=== PATIENT | male | born 1950 | race Caucasian/White ===

== ENCOUNTER 2020-04-27 22:52 | Emergency (ER) | payer MEDICARE, OTHER ==
[2020-04-27] MEDS: Nitroglycerin 0.4 MG Tab.SL SL PRN (23:05)
[2020-04-27] MEDS ORDERED: Sodium Chloride 0.9% 10 ML Syringe FLUSH PRN (23:13)
--- NOTE | 2020-04-27 23:14 | EDM.PDOC ---
ED HPI GENERAL MEDICAL PROBLEM - General Stated Complaint: CHEST PAIN Time Seen by Provider: 04/27/20 23:10 Source of Information: Reports: Patient History Limitations: Reports: No Limitations - History of Present Illness INITIAL COMMENTS - FREE TEXT/NARRATIVE: Patient comes emergency department today with complaints of chest pain. This patient about half hour prior to arrival was awoken from sleep with a sharp shooting stabbing pain in the left anterior chest. This pain gets quite a bit worse with a deep breath movement or cough. He has had no congestion. No shortness of breath fever or chills. No weakness dizziness lightheadedness. No palpitations. No syncope. He has never had pain like this in the past. He denies any COVID symptoms. Does have a history of factor V Leiden coagulopathy for which he is chronically on Coumadin for. He has had no recent surgery sedentary lifestyle or long trips in a car or airplane. He does not smoke for many years. He did have about a pack a day for 12 years history. He has no abdominal pain nausea or vomiting. No hematuria dysuria or urinary frequency. No black or tarry stools. The pain does not really radiate much from the left medial anterior chest region. Mid-Sternal Chest Pain Score (Numeric/FACES): 8 - Related Data Allergies Allergy/AdvReac Type Severity Reaction Status Date / Time No Known Allergies Allergy Verified 09/11/15 10:43 Home Meds: Home Meds Doxazosin Mesylate [Cardura] 2 mg PO DAILY 04/27/20 [History] Esomeprazole [NexIUM] 40 mg PO DAILY 04/27/20 [History] Fluticasone Propionate [Flonase] 2 spray NASBOTH DAILY 04/27/20 [History] Telmisartan/Hydrochlorothiazid [Telmisartan-Hctz 80-25 mg Tab] 1 each PO DAILY 04/27/20 [History] Warfarin Sodium [Jantoven] 3 mg PO ASDIRECTED 04/27/20 [History] atorvaSTATin Calcium [Atorvastatin Calcium] 10 mg PO DAILY 04/27/20 [History] Past Medical History Other Hematologic History: Clotting disorder ED ROS GENERAL - Review of Systems Review Of Systems: Comprehensive ROS is negative, except as noted in HPI. ED EXAM, GENERAL - Physical Exam Exam: See Below Exam Limited By: No Limitations General Appearance: Alert, WD/WN, No Apparent Distress Eye Exam: Bilateral Eye: EOMI Ears: Normal External Exam Nose: Normal Inspection, Normal Mucosa Throat/Mouth: Normal Inspection, Normal Lips, Normal Oropharynx Head: Atraumatic, Normocephalic Neck: Normal Inspection, Supple, Non-Tender Respiratory/Chest: No Respiratory Distress, Lungs Clear, Normal Breath Sounds, No Accessory Muscle Use, Chest Non-Tender (No bruising swelling or signs of trauma. ) Cardiovascular: Normal Peripheral Pulses, Regular Rate, Rhythm Peripheral Pulses: 2+: Radial (L), Radial (R), Posterior Tibial (L), Posterior Tibial (R), Dorsalis Pedis (L), Dorsalis Pedis (R) GI/Abdominal: Normal Bowel Sounds, Soft, Non-Tender, No Distention (Male) Exam: Deferred Rectal (Males) Exam: Deferred Back Exam: Normal Inspection, Full Range of Motion Extremities: Normal Inspection, Normal Range of Motion, Non-Tender, No Pedal Edema, Normal Capillary Refill Neurological: Alert, Oriented, Normal Cognition, No Motor/Sensory Deficits Psychiatric: Normal Affect, Normal Mood Skin Exam: Warm, Dry, Intact, Normal Color, No Rash Lymphatic: No Adenopathy Course - Vital Signs Last Recorded V/S: Last Vital Signs Temp 98.5 F 04/27/20 22:55 Pulse 75 04/28/20 03:41 Resp 16 04/28/20 03:31 BP 133/81 04/28/20 03:41 Pulse Ox 97 04/28/20 03:31 - Orders/Labs/Meds Orders: Active Orders 24 hr Category Date Time Status EKG Documentation Completion [RC] STAT Care 04/27/20 23:13 Active Peripheral IV Insertion Adult [OM.PC] Stat Oth 04/27/20 23:13 Ordered Labs: Laboratory Tests 04/27/20 04/27/20 04/27/20 Range/Units 23:05 23:05 23:05 WBC 5.5 (4.0-10.0) x10^3/uL RBC 4.29 L (4.5-6.0) x10^6/uL Hgb 13.4 L D (14.0-18.0) g/dL Hct 37.8 L (40.0-52.0) % MCV 88.1 (78.0-93.0) fL MCH 31.2 (26.0-32.0) pg MCHC 35.4 (32.0-36.0) g/dL RDW Coeff of Deandra 12.5 (10.0-15.0) % Plt Count 185 (130-400) x10^3/uL Neut % (Auto) 54.3 (50.0-80.0) % Lymph % (Auto) 30.4 (25.0-50.0) % [place] % (Auto) 10.6 (2.0-11.0) % Eos % (Auto) 4.2 H (0.0-4.0) % Baso % (Auto) 0.5 (0.2-1.2) % PT 17.7 H (9.5-12.3) SEC INR 1.7 L (2.0-3.5) APTT 32.7 (25.6-32.8) SEC D-Dimer, Quantitative 0.37 (<=0.58) mg/LFEU Sodium 135 L (136-145) mmol/L Potassium 3.6 (3.5-5.1) mmol/L Chloride 97 L (98-107) mmol/L Carbon Dioxide 29 (21-32) mmol/L Anion Gap 12.6 (10-20) mmol/L BUN 17 (7-18) mg/dL Creatinine 1.4 H (0.70-1.30) mg/dL Est Cr Clr Drug Dosing TNP Estimated GFR (MDRD) 50 Glucose 109 H (74-106) mg/dL Calcium 8.5 (8.5-10.1) mg/dL Corrected Calcium 8.42 L (8.5-10.1) mg/dL Total Bilirubin 0.7 (0.2-1.0) mg/dL AST 47 H (15-37) U/L ALT 68 H (16-63) U/L Alkaline Phosphatase 85 (46-116) U/L Troponin I < 0.017 (<=0.056) ng/mL Total Protein 7.9 (6.4-8.2) g/dL Albumin 4.1 (3.4-5.0) g/dL Globulin 3.8 Albumin/Globulin Ratio 1.08 /11/17 Range/Units 03:09 WBC (4.0-10.0) x10^3/uL RBC (4.5-6.0) x10^6/uL Hgb (14.0-18.0) g/dL Hct (40.0-52.0) % MCV (78.0-93.0) fL MCH (26.0-32.0) pg MCHC (32.0-36.0) g/dL RDW Coeff of Deandra (10.0-15.0) % Plt Count (130-400) x10^3/uL Neut % (Auto) (50.0-80.0) % Lymph % (Auto) (25.0-50.0) % [place] % (Auto) (2.0-11.0) % Eos % (Auto) (0.0-4.0) % Baso % (Auto) (0.2-1.2) % PT (9.5-12.3) SEC INR (2.0-3.5) APTT (25.6-32.8) SEC D-Dimer, Quantitative (<=0.58) mg/LFEU Sodium (136-145) mmol/L Potassium (3.5-5.1) mmol/L Chloride (98-107) mmol/L Carbon Dioxide (21-32) mmol/L Anion Gap (10-20) mmol/L BUN (7-18) mg/dL Creatinine (0.70-1.30) mg/dL Est Cr Clr Drug Dosing Estimated GFR (MDRD) Glucose (74-106) mg/dL Calcium (8.5-10.1) mg/dL Corrected Calcium (8.5-10.1) mg/dL Total Bilirubin (0.2-1.0) mg/dL AST (15-37) U/L ALT (16-63) U/L Alkaline Phosphatase (46-116) U/L Troponin I < 0.017 (<=0.056) ng/mL Total Protein (6.4-8.2) g/dL Albumin (3.4-5.0) g/dL Globulin Albumin/Globulin Ratio Meds: Medications Discontinued Medications Generic Name Dose Route Start Last Admin Trade Name Freq PRN Reason Stop Dose Admin Al Hydroxide/Mg Hydroxide 30 ml 04/28/20 04:40 04/28/20 04:45 Gi Cocktail PO 04/28/20 04:41 30 ml ONETIME ONE Administration Aspirin 324 mg 04/28/20 00:01 04/27/20 23:05 Aspirin PO 04/28/20 00:02 324 mg ONETIME ONE Administration Nitroglycerin 0.4 mg 04/28/20 00:01 04/28/20 03:30 Nitrostat SL 04/29/20 00:01 0.4 mg Q5M PRN Administration Chest Pain Sodium Chloride 10 ml 04/27/20 23:13 Saline Flush FLUSH ASDIRECTED PRN Keep Vein Open - Radiology Interpretation Free Text/Narrative:: Cardiomegaly with mild central vascular congestion. - Re-Assessments/Exams Free Text/Narrative Re-Assessment/Exam: Initially the patient was given 324mg PO Aspirin and 1 nitro prior to my arrival. EKG NO ST elevation or depression and unchange from previous. CP did improve after the nitro and also sitting up really. D-Dimer negative. Troponin negative. Repeated troponin at 4 hours and still negative. His CP did return on its own and was given a nitro by nursing prior to my arrival. We also gave him a GI Cocktail and sat him up and that resolved his CP quickly and more effectively per the patient. I wound him aspect of this is not either heartburn or musculoskeletal. 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 Could be some underlying angina. He really does not want to stay in the hospital or have any further evaluation as he has to take his to [place]. I think this is fine at this time as his repeat troponin is negative. If he has recurrence of his chest pain and like him to try some [id number] Maalox or Mylanta. If this does not resolve to recheck at that time. I also want a see his primary care as soon as possible for consideration of a stress test. He is comfortable with this plan his questions are answered. Departure - Departure Time of Disposition: 04:45 Disposition: Home, Self-Care Clinical Impression: Chest pain made worse by breathing Instructions: Nonspecific Chest Pain, Adult, [id number] Referrals: Yoav Bear MD [Primary Care Provider] - Forms: ED Department Discharge Additional Instructions: Continue with home therapies. Continue with the aspirin daily. See your PCP sunday or sunday for recheck and consider a stress test. Return if new or worsening symptoms. For acute episodes of the heart burn try OTC Maalox or Mylanta Sepsis Event Note (ED) - Focused Exam Vital Signs: Vital Signs Pulse Resp BP BP Pulse Ox 04/28/20 03:41 75 133/81 04/28/20 03:31 8 L 16 168/101 H 97 04/28/20 03:30 168/101 H - My Orders Last 24 Hours: My Active Orders 04/27/20 23:13 EKG Documentation Completion [RC] STAT Peripheral IV Insertion Adult [OM.PC] Stat - Assessment/Plan Last 24 Hours: My Active Orders 04/27/20 23:13 EKG Documentation Completion [RC] STAT Peripheral IV Insertion Adult [OM.PC] Stat
[2020-04-27 23:44] LABS: CHLORIDE,CL 97 mmol/L (98-107); SODIUM,NA 135 mmol/L (136-145)
[2020-04-27 23:48] LABS: ANION GAP 12.6 mmol/L (10-20)
[2020-04-28] MEDS ORDERED: Aspirin 81 MG Tab.Chew PO ONE (00:01)
[2020-04-28 00:04] LABS: PTT,PARTIAL THROMBOPLSTIN TIME 32.7 SEC (25.6-32.8)
[2020-04-28] MEDS: Nitroglycerin 0.4 MG Tab.SL SL PRN (03:30)
[2020-04-28 03:41] VITALS: BP 133/81; PULSE 75
[2020-04-28] MEDS ORDERED: GI Cocktail Oral Solution 30 ML PO ONE (04:40)
--- NOTE | 2020-04-28 07:55 | CR ---
[id number] RAD/RAD Chest PA And Lateral EXAM: FRONTAL AND LATERAL CHEST INDICATION: CHEST PAIN, SHORTNESS OF BREATH. COMPARISON: September 11, 2015. DISCUSSION: Cardiomegaly with borderline central vascular congestion that is similar to the previous exam. The left hemidiaphragm is obscured, but this is similar to the prior study and may relate to chronic left base pathology or technical factors. No definite acute infiltrates. No effusions. IMPRESSION: 1. Cardiomegaly with borderline central vascular congestion. Ralph Garcia MD 04/28/20 0754 Thank you for allowing us to participate in the care of your patient.
== END 2020-04-28 05:15 | disposition home or self-care (01) ==
LOC: VM.ED 22:52
DX: R07.1 Chest pain on breathing (principal); Z79.899 Other long term (current) drug therapy
CPT/HCPCS: 36415; 71046; 80053; 84484; 85025; 85379; 85610; 85730; 93005; 99284-GF; 99285-25; A9270-GY

== ENCOUNTER 2020-10-19 20:51 | Emergency (ER) | payer MEDICARE, OTHER ==
[2020-10-19] MEDS ORDERED: Lactated Ringers 1,000 ML IV ONE (21:30)
[2020-10-19] MEDS ORDERED: Ondansetron 4 MG/2 ML SDV ONE (21:37)
[2020-10-19] MEDS ORDERED: HYDROmorphone 1 MG/ML Syringe ONE (21:37)
[2020-10-19] MEDS ORDERED: Take Home: Acetaminophen/HYDROcodone 325-5 MG, 5 Tab Pack ONE (23:14)
[2020-10-20 06:57] LABS: CHLORIDE,CL 99 mmol/L (98-107); SODIUM,NA 135 mmol/L (136-145)
[2020-10-20 06:58] LABS: ANION GAP 15.5 mmol/L (10-20)
--- NOTE | 2020-10-20 09:36 | EDM.PDOC ---
ED HPI GENERAL MEDICAL PROBLEM - General Stated Complaint: RUQ abdominal pain Time Seen by Provider: 10/19/20 20:57 Source of Information: Reports: Patient History Limitations: Reports: No Limitations - History of Present Illness INITIAL COMMENTS - FREE TEXT/NARRATIVE: Patient comes emergency department today with complaints of right upper quadrant abdominal pain. This patient for about the last week and a half or so has had some intermittent spasming type right upper quadrant abdominal pain. He was seen in the primary care setting for a yearly physical and identified this pain as well as some minimal elevation of his liver enzymes. He is actually scheduled to have an ultrasound in [place] tomorrow due to his right upper quadrant pain. Tonight he has severe pain that is very crampy in nature in the right upper quadrant. To the point where it is difficult for him to take a deep breath because it makes his spasms worse. The pain goes into his back into his right shoulder. He has not had any nausea or vomiting. No bloating distention. No diarrhea. No chest pain or shortness of breath or difficulty breathing. No cough or congestion. No fever or chills. No hematuria dysuria or urinary frequency. No flank pain. No syncope weakness dizziness lightheadedness. No palpitations. No COvid exposure no COvid symptoms. His pain was quite severe and crampy prior to arrival but is slowly gotten better as he is been here prior to my evaluation. He had some rotisserie chicken for dinner. - Related Data Allergies Allergy/AdvReac Type Severity Reaction Status Date / Time No Known Allergies Allergy Verified 10/20/20 02:39 Home Meds: Home Meds Doxazosin Mesylate [Cardura] 2 mg PO DAILY 04/27/20 [History] Esomeprazole [NexIUM] 40 mg PO DAILY 04/27/20 [History] Fluticasone Propionate [Flonase] 2 spray NASBOTH DAILY 04/27/20 [History] Telmisartan/Hydrochlorothiazid [Telmisartan-Hctz 80-25 mg Tab] 1 each PO DAILY 04/27/20 [History] Warfarin Sodium [Jantoven] 3 mg PO ASDIRECTED 04/27/20 [History] atorvaSTATin Calcium [Atorvastatin Calcium] 10 mg PO DAILY 04/27/20 [History] Past Medical History Cardiovascular History: Reports: Blood Clots/VTE/DVT, High Cholesterol, Hypertension Gastrointestinal History: Reports: GERD Neurological History: Reports: CVA Other Hematologic History: Clotting disorder ED ROS GENERAL - Review of Systems Review Of Systems: Comprehensive ROS is negative, except as noted in HPI. ED EXAM, GI/ABD - Physical Exam Exam: See Below Exam Limited By: No Limitations General Appearance: Alert, WD/WN, Anxious Eyes: Bilateral: EOMI Ears: Normal External Exam Nose: Normal Inspection Throat/Mouth: Normal Inspection Head: Atraumatic, Normocephalic Neck: Normal Inspection, Supple, Non-Tender Respiratory/Chest: No Respiratory Distress, Lungs Clear, Normal Breath Sounds, No Accessory Muscle Use, Chest Non-Tender Cardiovascular: Normal Peripheral Pulses, Regular Rate, Rhythm GI/Abdominal Exam: Normal Bowel Sounds, Soft, No Organomegaly, No Distention, No Abnormal Bruit, No Mass, Pelvis Stable, Tender (He has some tenderness in the right upper quadrant with palpation. Question a positive Melchor sign). No: Guarding, Rigid, Rebound (Male) Exam: Deferred Rectal (Males) Exam: Deferred Back Exam: Normal Inspection, Full Range of Motion Extremities: Normal Inspection, Normal Range of Motion, Non-Tender, Normal Capillary Refill Neurological: Alert, Oriented, Normal Cognition, No Motor/Sensory Deficits Psychiatric: Normal Affect, Normal Mood Skin Exam: Warm, Dry, Intact, Normal Color, No Rash Lymphatic: No Adenopathy Course - Orders/Labs/Meds Labs: Laboratory Tests 10/19/20 10/19/20 Range/Units 21:25 21:25 WBC 7.3 (4.0-10.0) x10^3/uL RBC 4.36 L (4.5-6.0) x10^6/uL Hgb 12.7 L (14.0-18.0) g/dL Hct 37.8 L (40.0-52.0) % MCV 86.7 (78.0-93.0) fL MCH 29.1 (26.0-32.0) pg MCHC 33.6 (32.0-36.0) g/dL RDW Coeff of Deandra 12.6 (10.0-15.0) % Plt Count 225 (130-400) x10^3/uL Neut % (Auto) 74.8 (50.0-80.0) % Lymph % (Auto) 12.7 L (25.0-50.0) % [place] % (Auto) 9.1 (2.0-11.0) % Eos % (Auto) 3.0 (0.0-4.0) % Baso % (Auto) 0.4 (0.2-1.2) % Sodium 135 L (136-145) mmol/L Potassium 3.5 (3.5-5.1) mmol/L Chloride 99 (98-107) mmol/L Carbon Dioxide 24 (21-32) mmol/L Anion Gap 15.5 (10-20) mmol/L BUN 24 H (7-18) mg/dL Creatinine 1.4 H (0.70-1.30) mg/dL Est Cr Clr Drug Dosing TNP Estimated GFR (MDRD) 50 Glucose 117 H (74-106) mg/dL Calcium 9.2 (8.5-10.1) mg/dL Corrected Calcium 9.68 (8.5-10.1) mg/dL Total Bilirubin 0.6 (0.2-1.0) mg/dL AST 54 H (15-37) U/L ALT 90 H (16-63) U/L Alkaline Phosphatase 197 H (46-116) U/L C-Reactive Protein 3.0 H (<=0.9) mg/dL Total Protein 8.1 (6.4-8.2) g/dL Albumin 3.4 (3.4-5.0) g/dL Globulin 4.7 Albumin/Globulin Ratio 0.72 Lipase 89 (73-393) U/L Meds: Medications Discontinued Medications Generic Name Dose Route Start Last Admin Trade Name Brando PRN Reason Stop Dose Admin Hydrocodone Bitart/Acetaminophen Confirm 10/19/20 23:14 Take Home: Acetam/Hydrocodon 325-5 Mg, 5 Pack Administered 10/19/20 23:15 Dose 1 packet .ROUTE .STK-MED ONE Hydromorphone HCl Confirm 10/19/20 21:37 Dilaudid Administered 10/19/20 21:38 Dose 1 mg .ROUTE .STK-MED ONE Ondansetron HCl Confirm 10/19/20 21:37 Zofran Administered 10/19/20 21:38 Dose 4 mg .ROUTE .STK-MED ONE - Re-Assessments/Exams Free Text/Narrative Re-Assessment/Exam: An IV was established labs are drawn. He has a normal white blood cell count of 7.3 with a hemoglobin of 12.7. Platelet of 225. LR 500 mill bolus. 1 mg of Dilaudid with complete resolution of his pain. Panel shows a mild elevation of his creatinine of 1.4 and a BUN of 24. AST 54 ALT 90 T bili at 0.6 alkaline phosphatase 197 and a C-reactive protein of 3.0. Lipase 89. He was monitored over the next couple of hours and had no recurrence of his pain. Multiple reexaminations of the abdomen shows a soft nontender nondistended abdomen. POCUS completed and reviewed extemporaneously by myself of the right upper quadrant. Shows a nondistended gallbladder. Gallbladder miranda are approximately 0.6. There is no pericystic fluid. There is a small amount of sludge or fine stones in the gallbladder neck. Right kidney is normal. Unable to identify the common bile duct. Is rested comfortably following the milligram of Dilaudid. This is really the sequelae of Biliary colic. He has a mild elevation of his liver enzymes with a normal T [place]. We will discharge him home with some pain management and a follow-up that is already been scheduled with his ultrasound for tomorrow for definitive work-up of his biliary colic. Lisa at length the diet for gallbladder at home. Return if anything new or worse. He is comfortable with this plan his questions are answered. Departure - Departure Time of Disposition: 23:15 Disposition: Home, Self-Care 01 Clinical Impression: Biliary colic - Discharge Information Referrals: PCP,Unobtain [Primary Care Provider] - Additional Instructions: Tylenol and/or ibuprofen as needed for pain. Home rest tonight gallbladder diet. Follow-up with your ultrasound for tomorrow. If pain not controlled with above [place] 1 tablet p.o. q. 46 as needed pain. Starter pack sent home with the patient. Prescription sent to the pharmacy. The emergency department new or worsening symptoms. Follow-up with primary care provider the next 4 to 6 days if not improving sooner if worse. Follow-up with ultrasound tomorrow as planned.
== END 2020-10-19 23:15 | disposition home or self-care (01) ==
LOC: VM.ED 20:51
DX: K80.50 Calculus of bile duct without cholangitis or cholecystitis without obstruction (principal); R74.8 Abnormal levels of other serum enzymes; I10 Essential (primary) hypertension; E78.00 Pure hypercholesterolemia, unspecified; K21.9 Gastro-esophageal reflux disease without esophagitis; Z79.899 Other long term (current) drug therapy
CPT/HCPCS: 80053; 83690; 85025; 86140; 99284; A9270-GY; J1170; J2405; J7120

== ENCOUNTER 2020-10-20 09:17 | Emergency (ER) | payer MEDICARE, OTHER ==
[2020-10-20] MEDS ORDERED: HYDROmorphone 1 MG/ML Syringe IVPUSH ONE (09:28)
[2020-10-20] MEDS ORDERED: Sodium Chloride 0.9% 10 ML Syringe FLUSH PRN (09:28)
[2020-10-20] MEDS ORDERED: Lactated Ringers 1,000 ML IV SCH (09:30)
--- NOTE | 2020-10-20 10:10 | EDM.PDOC ---
ED HPI GENERAL MEDICAL PROBLEM - General Stated Complaint: BACK PAIN Time Seen by Provider: 10/20/20 09:20 Source of Information: Reports: Patient History Limitations: Reports: No Limitations - History of Present Illness INITIAL COMMENTS - FREE TEXT/NARRATIVE: Patient comes emergency department today with continued complaints of right upper quadrant pain. This patient was seen by myself in the emergency department last night with right upper quadrant colicky type pain. Please read my ER note from last night for further information. As a short he has had complete pain in the right upper quadrant for about the past 2 weeks. Came in last night had severe pain into the right upper quadrant. He received Dilaudid with resolution of his pain. He had mild elevation of his liver enzymes to include AST ALT and alkaline phosphatase although he had a normal T bili. And a normal white blood cell count. After he left home last night after the 1 mg of Dilaudid he felt very well. He had no pain. No nausea no vomiting. This morning he woke up and he was asymptomatic. Shortly after eating breakfast he developed severe cramping colicky type pain in the right upper quadrant that went into his back into his right shoulder. Similar to last night. Although now he is sweating he is nauseous he has been vomiting. He was supposed to be in [place] today for an ultrasound of the right upper quadrant although he was unable to go due to his symptoms as well as the weather. He denies any chest pain shortness of breath or difficulty breathing. No cough or congestion. No weakness dizziness lightheadedness. No palpitations syncope. No loss of taste or smell. No diarrhea. He does complain of some abdominal distention and bloating which is different than last night. No hematuria dysuria or urinary frequency. No flank pain. No Covid exposure no Covid symptoms. RUQ Pain Pain Score (Numeric/FACES): 6 - Related Data Allergies Allergy/AdvReac Type Severity Reaction Status Date / Time No Known Allergies Allergy Verified 10/20/20 10:15 Home Meds: Home Meds Doxazosin Mesylate [Cardura] 2 mg PO DAILY 04/27/20 [History] Esomeprazole [NexIUM] 40 mg PO DAILY 04/27/20 [History] Fluticasone Propionate [Flonase] 2 spray NASBOTH DAILY 04/27/20 [History] Telmisartan/Hydrochlorothiazid [Telmisartan-Hctz 80-25 mg Tab] 1 each PO DAILY 04/27/20 [History] Warfarin Sodium [Jantoven] 3 mg PO ASDIRECTED 04/27/20 [History] atorvaSTATin Calcium [Atorvastatin Calcium] 10 mg PO DAILY 04/27/20 [History] Past Medical History Cardiovascular History: Reports: Blood Clots/VTE/DVT, High Cholesterol, Hypertension Gastrointestinal History: Reports: GERD Neurological History: Reports: CVA Other Hematologic History: Clotting disorder ED ROS GENERAL - Review of Systems Review Of Systems: Comprehensive ROS is negative, except as noted in HPI. ED EXAM, GI/ABD - Physical Exam Exam: See Below Text/Narrative:: He does appear quite different than last night. He is quite diaphoretic when I enter the room. Exam Limited By: No Limitations General Appearance: Alert, WD/WN Eyes: Bilateral: EOMI Ears: Normal External Exam Nose: Normal Inspection Throat/Mouth: Normal Inspection, Normal Lips, Normal Voice Head: Atraumatic, Normocephalic Neck: Normal Inspection, Supple, Non-Tender Respiratory/Chest: No Respiratory Distress, Lungs Clear, Normal Breath Sounds, No Accessory Muscle Use, Chest Non-Tender Cardiovascular: Normal Peripheral Pulses, Regular Rate, Rhythm GI/Abdominal Exam: Normal Bowel Sounds, Distended, Guarding (RUQ), Tender (Right Upper quadrant.), Other (Semi-firm distended abd. ). No: Rebound (Male) Exam: Deferred Rectal (Males) Exam: Deferred Back Exam: Normal Inspection, Full Range of Motion Extremities: Normal Inspection, Normal Range of Motion, Non-Tender, No Pedal Edema, Normal Capillary Refill Neurological: Alert, Oriented, Normal Cognition, No Motor/Sensory Deficits Psychiatric: Normal Affect Skin Exam: Intact, Cool, Diaphoretic, Pallor Lymphatic: No Adenopathy #1 Interpretation EKG Date: 10/20/20 Time: 09:27 Rhythm: NSR Rate (Beats/Min): 76 Ramer: Normal P-Wave: Present QRS: RBBB ST-T: Normal QT: Normal Comparison: NA - No Prior EKG Course - Vital Signs Last Recorded V/S: Last Vital Signs Temp 97.2 F 10/20/20 12:12 Pulse 78 10/20/20 12:12 Resp 16 10/20/20 12:12 BP 143/83 H 10/20/20 12:12 Pulse Ox 97 10/20/20 12:12 - Orders/Labs/Meds Labs: Laboratory Tests 10/20/20 10/20/20 10/20/20 Range/Units 09:45 09:45 09:45 WBC 5.4 (4.0-10.0) x10^3/uL RBC 4.40 L (4.5-6.0) x10^6/uL Hgb 12.7 L (14.0-18.0) g/dL Hct 38.6 L (40.0-52.0) % MCV 87.7 (78.0-93.0) fL MCH 28.9 (26.0-32.0) pg MCHC 32.9 (32.0-36.0) g/dL RDW Coeff of Deandra 12.8 (10.0-15.0) % Plt Count 243 (130-400) x10^3/uL Neut % (Auto) 67.6 (50.0-80.0) % Lymph % (Auto) 17.2 L (25.0-50.0) % Daniels % (Auto) 11.5 H (2.0-11.0) % Eos % (Auto) 3.1 (0.0-4.0) % Baso % (Auto) 0.6 (0.2-1.2) % PT (9.5-12.3) SEC INR (2.0-3.5) APTT (25.6-32.8) SEC Sodium 136 (136-145) mmol/L Potassium 3.5 (3.5-5.1) mmol/L Chloride 100 (98-107) mmol/L Carbon Dioxide 25 (21-32) mmol/L Anion Gap 14.5 (10-20) mmol/L BUN 22 H (7-18) mg/dL Creatinine 1.3 (0.70-1.30) mg/dL Est Cr Clr Drug Dosing TNP Estimated GFR (MDRD) 55 Glucose 132 H (74-106) mg/dL Lactic Acid 1.5 (0.4-2.0) mmol/L Calcium 9.0 (8.5-10.1) mg/dL Corrected Calcium 9.40 (8.5-10.1) mg/dL Total Bilirubin 0.8 (0.2-1.0) mg/dL AST 59 H (15-37) U/L ALT 101 H (16-63) U/L Alkaline Phosphatase 208 H (46-116) U/L Troponin I < 0.017 (<=0.056) ng/mL C-Reactive Protein 3.5 H (<=0.9) mg/dL Total Protein 8.2 (6.4-8.2) g/dL Albumin 3.5 (3.4-5.0) g/dL Globulin 4.7 Albumin/Globulin Ratio 0.74 Lipase 77 (73-393) U/L Urine Color (YELLOW) Urine Appearance (CLEAR) Urine pH (5.0-8.0) Ur Specific [place] Urine Protein (NEGATIVE) mg/dL Urine Glucose (UA) (NEGATIVE) mg/dL Urine Ketones (NEGATIVE) mg/dL Urine Occult Blood (NEGATIVE) Urine Nitrite (NEGATIVE) Urine Bilirubin (NEGATIVE) Urine Urobilinogen (0.2) EU/dL Ur Leukocyte Esterase (NEGATIVE) Urine RBC (NOT SEEN) /HPF Urine WBC (NOT SEEN) /HPF Ur Squamous Epith Cells (NEGATIVE) /HPF Urine Bacteria (NEGATIVE) /HPF Urine Mucus (NEGATIVE) /LPF SARS CoV-2 RNA Rapid HEBER (NEGATIVE) 10/20/20 10/20/20 10/20/20 Range/Units 09:45 12:12 12:42 WBC (4.0-10.0) x10^3/uL RBC (4.5-6.0) x10^6/uL Hgb (14.0-18.0) g/dL Hct (40.0-52.0) % MCV (78.0-93.0) fL MCH (26.0-32.0) pg MCHC (32.0-36.0) g/dL RDW Coeff of Deandra (10.0-15.0) % Plt Count (130-400) x10^3/uL Neut % (Auto) (50.0-80.0) % Lymph % (Auto) (25.0-50.0) % Daniels % (Auto) (2.0-11.0) % Eos % (Auto) (0.0-4.0) % Baso % (Auto) (0.2-1.2) % PT 23.9 H D (9.5-12.3) SEC INR 2.3 (2.0-3.5) APTT 36.3 H (25.6-32.8) SEC Sodium (136-145) mmol/L Potassium (3.5-5.1) mmol/L Chloride (98-107) mmol/L Carbon Dioxide (21-32) mmol/L Anion Gap (10-20) mmol/L BUN (7-18) mg/dL Creatinine (0.70-1.30) mg/dL Est Cr Clr Drug Dosing Estimated GFR (MDRD) Glucose (74-106) mg/dL Lactic Acid (0.4-2.0) mmol/L Calcium (8.5-10.1) mg/dL Corrected Calcium (8.5-10.1) mg/dL Total Bilirubin (0.2-1.0) mg/dL AST (15-37) U/L ALT (16-63) U/L Alkaline Phosphatase (46-116) U/L Troponin I (<=0.056) ng/mL C-Reactive Protein (<=0.9) mg/dL Total Protein (6.4-8.2) g/dL Albumin (3.4-5.0) g/dL Globulin Albumin/Globulin Ratio Lipase (73-393) U/L Urine Color Yellow (YELLOW) Urine Appearance Clear (CLEAR) Urine pH 5.5 (5.0-8.0) Ur Specific [place] 1.015 Urine Protein Trace H (NEGATIVE) mg/dL Urine Glucose (UA) Negative (NEGATIVE) mg/dL Urine Ketones Negative (NEGATIVE) mg/dL Urine Occult Blood Trace-intact H (NEGATIVE) Urine Nitrite Negative (NEGATIVE) Urine Bilirubin Negative (NEGATIVE) Urine Urobilinogen 0.2 (0.2) EU/dL Ur Leukocyte Esterase Negative (NEGATIVE) Urine RBC 0-5 (NOT SEEN) /HPF Urine WBC 0-5 (NOT SEEN) /HPF Ur Squamous Epith Cells Rare (NEGATIVE) /HPF Urine Bacteria Rare (NEGATIVE) /HPF Urine Mucus Rare H (NEGATIVE) /LPF SARS CoV-2 RNA Rapid HEBER Negative (NEGATIVE) Meds: Medications Discontinued Medications Generic Name Dose Route Start Last Admin Trade Name Freq PRN Reason Stop Dose Admin Diphenhydramine HCl 12.5 mg 10/20/20 10:20 10/20/20 11:22 Benadryl IVPUSH 10/20/20 10:21 12.5 mg ONETIME ONE Administration Hydromorphone HCl 1 mg 10/20/20 09:28 10/20/20 09:57 Dilaudid IVPUSH 10/20/20 09:29 1 mg ONETIME ONE Administration Hydromorphone HCl 0.5 mg 10/20/20 12:04 10/20/20 12:07 Dilaudid IV 10/20/20 12:05 0.5 mg ONETIME ONE Administration Lactated Ringer's 1,000 mls @ 125 mls/hr 10/20/20 09:30 10/20/20 09:58 Ringers, Lactated IV 125 mls/hr ASDIRECTED ISAK Administration Iopamidol 100 ml 10/20/20 10:16 10/20/20 10:17 Isovue-300 (61%) IVPUSH 10/20/20 10:17 100 ml ONETIME ONE Administration Ondansetron HCl 4 mg 10/20/20 10:20 10/20/20 11:20 Zofran IV 10/20/20 10:21 4 mg ONETIME ONE Administration Sodium Chloride 10 ml 10/20/20 09:28 Saline Flush FLUSH ASDIRECTED PRN Keep Vein Open - Re-Assessments/Exams Free Text/Narrative Re-Assessment/Exam: He was established labs were drawn. To include blood cultures. EKG shows right bundle dylan block without any ST elevation or depression when reviewed extemporaneously by myself. Dilaudid 1 mg IV push. LR 125 an hour. Labs are very similar to last night. He still has a normal white blood cell count. His hemoglobin is stable. His liver enzymes to include AST ALT and alkaline phosphatase are all minimally elevated just like last night. He still has a normal total bilirubin. His lipase is negative. Troponin is negative at less than 0.017. CT abdomen pelvis per radiology shows metastatic disease involving the liver versus hepatoma. The gallbladder is not distended. No pancreatic mass. No bowel distention. Pelvis shows no mass or adenopathy. He had recurrence of his pain following the Dilaudid. He continues to be diap horetic. He is quite nauseous and has vomited multiple times. He has been given Zofran and Benadryl in the emergency department but still complains of nausea and vomiting and recurrent right upper quadrant pain. He is complaining of the chills and he continues to be diaphoretic. I am really unsure of what is causing all of his symptomology. I still have concerns for gallbladder disease although we are unable to complete an ultrasound or HIDA scan today. I did review the findings of the concerns for metastatic versus hepatoma disease to his liver. Although I think that this may be an incidental finding and not what is causing all of her symptoms today although I am unable to further evaluate it and he continues to have pain nausea and vomiting and diaphoresis. COVID negative. I called and spoke with Dr. Cedric Meyer at [facility]. HPI ER COURSE findings and concerns were relayed to him verbally over the phone. His questions were answered and he accepted the patient in transfer at this time with no new orders in place. Departure - Departure Time of Disposition: 13:02 Disposition: DC/Tfer to [facility] 02 Clinical Impression: Biliary colic, Intractable nausea and vomiting, Liver mass, left lobe - Discharge Information Referrals: Yoav Bear MD [Primary Care Provider] - Forms: Interfacility Transfer MARGARETH
[2020-10-20 10:13] LABS: ANION GAP 14.5 mmol/L (10-20); CHLORIDE,CL 100 mmol/L (98-107); SODIUM,NA 136 mmol/L (136-145)
[2020-10-20] MEDS ORDERED: Iopamidol 612 MG/ML 100 ML Bottle IVPUSH ONE (10:16)
[2020-10-20] MEDS ORDERED: Ondansetron 4 MG/2 ML SDV IV ONE (10:20)
[2020-10-20] MEDS ORDERED: diphenhydrAMINE 50 MG/ML SDV IVPUSH ONE (10:20)
--- NOTE | 2020-10-20 10:58 | CT ---
[id number] CT/CT Abdomen Pelvis W IV EXAM: CT Abdomen Pelvis W IV CLINICAL DATA: RIGHT UPPER QUADRANT DISTENTION COMPARISON: NO PREVIOUS SIMILAR EXAM IS AVAILABLE. FINDINGS: The liver is enlarged The liver appears to be associated with metastatic disease versus a hepatoma It is primarily the left lobe of the liver that is involved The gallbladder is not distended The portal venous system is patent. There is no aneurysm or adenopathy There is no pancreatic mass The adrenals and kidneys are unremarkable. The spleen is unremarkable There is no bowel distention The pelvis shows no mass or adenopathy There is bibasilar discoid atelectasis There is a moderate hiatal hernia IMPRESSION: METASTATIC DISEASE INVOLVING LIVER VERSUS HEPATOMA Kamaljit Harris MD 10/20/20 [id number] Thank you for allowing us to participate in the care of your patient.
[2020-10-20] MEDS ORDERED: HYDROmorphone 0.5 MG/0.5 ML Syringe IV ONE (12:04)
[2020-10-20 13:17] LABS: PTT,PARTIAL THROMBOPLSTIN TIME 36.3 SEC (25.6-32.8)
[2020-10-20 16:26] VITALS: BP 143/83; PULSE 78
== END 2020-10-20 13:45 | disposition short-term general hospital (02) ==
LOC: SUPCPDRO 09:17 → VM.ED 09:17
DX: K80.50 Calculus of bile duct without cholangitis or cholecystitis without obstruction (principal); R16.0 Hepatomegaly, not elsewhere classified; R11.2 Nausea with vomiting, unspecified; E78.00 Pure hypercholesterolemia, unspecified; I10 Essential (primary) hypertension; K21.9 Gastro-esophageal reflux disease without esophagitis; Z86.73 Personal history of transient ischemic attack (TIA), and cerebral infarction without residual deficits; Z20.828 Contact with and (suspected) exposure to other viral communicable diseases; Z79.899 Other long term (current) drug therapy
CPT/HCPCS: 36415; 74177; 80053; 81001; 83605; 83690; 84484; 85025; 85610; 85730; 86140; 87040; 93005; 93010; 96374; 96375; 96376; 99284; 99285-25; J1170; J1200; J2405; J7120; Q9967; U0002

== ENCOUNTER 2020-12-18 10:49 | Emergency (ER) | payer MEDICARE, OTHER ==
[2020-12-18] MEDS ORDERED: Sodium Chloride 0.9% 10 ML Syringe FLUSH PRN (11:06)
[2020-12-18] MEDS ORDERED: Sodium Chloride 0.9% 1,000 ML IV SCH (11:15)
--- NOTE | 2020-12-18 11:38 | EDM.PDOC ---
ED HPI GENERAL MEDICAL PROBLEM - General Chief Complaint: General Stated Complaint: Weakness Time Seen by Provider: 12/18/20 10:50 Source of Information: Reports: Patient History Limitations: Reports: No Limitations - History of Present Illness INITIAL COMMENTS - FREE TEXT/NARRATIVE: Pt. presents to ER today complaining of fatigue. Pt. was recently diagnosed with liver CA and is scheduled to start radiation at [facility] soon. He states that his appetite has been poor, and he has not been wanting to eat. He feels is drinking enough, but is concerned because his urine seems concentrated. Pt. denies any fever or chills. No chest pain or shortness of breath. No palpitations. No nausea, vomiting or diarrhea. He denies any sore throat, rhinorrhea, congestion, or sore throat. Denies any ill contacts. He is not experiencing any dysuria, frequency or urgency. Pt. states that he was given IV fluids in [facility] twice when he was down in [place] for cancer treatment workup/testing. Onset: Today Onset Date: 12/18/20 Location: Reports: Generalized Associated Symptoms: Reports: Loss of Appetite, Malaise, Weakness. Denies: Confusion, Chest Pain, Cough, Diaphoresis, Fever/Chills, Headaches, Nausea/Vomiting, Rash, Seizure, Shortness of Breath, Syncope - Related Data Allergies Allergy/AdvReac Type Severity Reaction Status Date / Time No Known Allergies Allergy Verified 10/20/20 10:15 Home Meds: Home Meds Doxazosin Mesylate [Cardura] 2 mg PO DAILY 04/27/20 [History] Fluticasone Propionate [Flonase] 2 spray NASBOTH DAILY 04/27/20 [History] Telmisartan/Hydrochlorothiazid [Telmisartan-Hctz 80-25 mg Tab] 1 each PO DAILY 04/27/20 [History] Warfarin Sodium [Jantoven] 3 mg PO ASDIRECTED 04/27/20 [History] atorvaSTATin Calcium [Atorvastatin Calcium] 10 mg PO DAILY 04/27/20 [History] Acetaminophen [Pain Relief] 650 mg PO Q4H PRN 12/18/20 [History] Aspirin [Aspirin EC] 81 mg PO DAILY 12/18/20 [History] Cetirizine [ZyrTEC] 5 mg PO DAILY 12/18/20 [History] Clopidogrel [Plavix] 75 mg PO DAILY 12/18/20 [History] EPINEPHrine [Auvi-Q] 0.3 mg IM DAILY PRN 12/18/20 [History] Enoxaparin [Lovenox] 100 mg SUBCUT Q12H 12/18/20 [History] Famotidine [Pepcid] 20 mg PO DAILY 12/18/20 [History] Loratadine [Claritin] 10 mg PO DAILY 12/18/20 [History] Ondansetron [Zofran ODT] 4 mg PO Q6H PRN 12/18/20 [History] Tadalafil [Cialis] 20 mg PO DAILY PRN 12/18/20 [History] atorvaSTATin Calcium [Lipitor] 20 mg PO DAILY 12/18/20 [History] oxyCODONE 10 mg PO Q6H PRN 12/18/20 [History] predniSONE [Prednisone] 40 mg PO DAILY PRN 12/18/20 [History] Past Medical History Cardiovascular History: Reports: Blood Clots/VTE/DVT, High Cholesterol, Hypertension Gastrointestinal History: Reports: GERD Neurological History: Reports: CVA Other Hematologic History: Clotting disorder ED ROS GENERAL - Review of Systems Review Of Systems: See Below Constitutional: Reports: Malaise, Fatigue. Denies: Fever, Chills, Diaphoresis HEENT: Reports: No Symptoms Respiratory: Reports: No Symptoms Cardiovascular: Reports: Lightheadedness Endocrine: Reports: No Symptoms GI/Abdominal: Reports: No Symptoms : Reports: No Symptoms Musculoskeletal: Reports: No Symptoms Skin: Reports: No Symptoms Neurological: Reports: No Symptoms Psychiatric: Reports: No Symptoms Hematologic/Lymphatic: Reports: No Symptoms Immunologic: Reports: No Symptoms ED EXAM, GENERAL - Physical Exam Exam: See Below Exam Limited By: No Limitations General Appearance: Alert, WD/WN, No Apparent Distress Throat/Mouth: Normal Inspection, Normal Gums, Normal Oropharynx, Normal Voice, No Airway Compromise Head: Atraumatic, Normocephalic Neck: Normal Inspection, Supple, Non-Tender, Full Range of Motion Respiratory/Chest: No Respiratory Distress, Lungs Clear, Normal Breath Sounds, No Accessory Muscle Use, Chest Non-Tender Cardiovascular: Normal Peripheral Pulses, Regular Rate, Rhythm, No JVD, No Murmur GI/Abdominal: Soft, Non-Tender, No Distention, No Mass (Male) Exam: Deferred Rectal (Males) Exam: Deferred Extremities: Normal Inspection, Normal Range of Motion, Non-Tender, No Pedal Edema, Normal Capillary Refill Neurological: Alert, Oriented, CN II-XII Intact, Normal Cognition, Normal Gait, Normal Reflexes, No Motor/Sensory Deficits Psychiatric: Normal Affect, Normal Mood Skin Exam: Warm, Dry, Intact, Normal Color, No Rash Course - Vital Signs Last Recorded V/S: Last Vital Signs Temp 35.7 C L 12/18/20 11:00 Pulse 89 12/18/20 11:00 Resp 16 12/18/20 11:00 BP 133/79 12/18/20 11:00 Pulse Ox 97 12/18/20 11:00 - Orders/Labs/Meds Orders: Active Orders 24 hr Category Date Time Status Sodium Chloride 0.9% [Normal Saline] 1,000 ml Med 12/18/20 11:15 Active IV ASDIRECTED Sodium Chloride 0.9% [Saline Flush] Med 12/18/20 11:06 Active 10 ml FLUSH ASDIRECTED PRN Peripheral IV Insertion Adult [OM.PC] Routine Oth 12/18/20 11:07 Ordered Medication Orders Sodium Chloride (Normal Saline) 1,000 mls @ 1,000 mls/hr IV ASDIRECTED ISAK Last Admin: 12/18/20 11:20 Dose: 1,000 mls/hr Documented by: DEVANTE Sodium Chloride (Saline Flush) 10 ml FLUSH ASDIRECTED PRN PRN Reason: Keep Vein Open Labs: Laboratory Tests 12/18/20 12/18/20 12/18/20 Range/Units 11:10 11:20 11:20 WBC 8.4 (4.0-10.0) x10^3/uL RBC 4.45 L (4.5-6.0) x10^6/uL Hgb 12.2 L (14.0-18.0) g/dL Hct 37.3 L (40.0-52.0) % MCV 83.8 D (78.0-93.0) fL MCH 27.4 (26.0-32.0) pg MCHC 32.7 (32.0-36.0) g/dL RDW Coeff of Deandra 14.6 (10.0-15.0) % Plt Count 365 D (130-400) x10^3/uL Neut % (Auto) 76.0 (50.0-80.0) % Lymph % (Auto) 11.4 L (25.0-50.0) % [place] % (Auto) 9.4 (2.0-11.0) % Eos % (Auto) 3.0 (0.0-4.0) % Baso % (Auto) 0.2 (0.2-1.2) % PT (9.9-12.5) SEC INR (2.0-3.5) Sodium 134 L (136-145) mmol/L Potassium 3.8 (3.5-5.1) mmol/L Chloride 96 L (98-107) mmol/L Carbon Dioxide 28 (21-32) mmol/L Anion Gap 13.8 (5-15) mmol/L BUN 23 H (7-18) mg/dL Creatinine 1.4 H (0.70-1.30) mg/dL Est Cr Clr Drug Dosing TNP Estimated GFR (MDRD) 50 Glucose 99 (74-106) mg/dL Calcium 9.1 (8.5-10.1) mg/dL Corrected Calcium 9.90 (8.5-10.1) mg/dL Total Bilirubin 0.9 (0.2-1.0) mg/dL AST 71 H (15-37) U/L ALT 82 H (16-63) U/L Alkaline Phosphatase 461 H (46-116) U/L Total Protein 8.8 H (6.4-8.2) g/dL Albumin 3.0 L (3.4-5.0) g/dL Globulin 5.8 Albumin/Globulin Ratio 0.52 Urine Color Dark yellow H (YELLOW) Urine Appearance Clear (CLEAR) Urine pH 6.5 (5.0-8.0) Ur Specific [place] 1.020 Urine Protein 100 H (NEGATIVE) mg/dL Urine Glucose (UA) Negative (NEGATIVE) mg/dL Urine Ketones Negative (NEGATIVE) mg/dL Urine Occult Blood Trace-intact H (NEGATIVE) Urine Nitrite Negative (NEGATIVE) Urine Bilirubin Negative (NEGATIVE) Urine Urobilinogen 0.2 (0.2) EU/dL Ur Leukocyte Esterase Negative (NEGATIVE) Urine RBC 0-5 (NOT SEEN) /HPF Urine WBC 0-5 (NOT SEEN) /HPF Ur Squamous Epith Cells Occasional H (NEGATIVE) /HPF Urine Bacteria Few H (NEGATIVE) /HPF Urine Mucus Few H (NEGATIVE) /LPF 12/18/20 Range/Units 11:20 WBC (4.0-10.0) x10^3/uL RBC (4.5-6.0) x10^6/uL Hgb (14.0-18.0) g/dL Hct (40.0-52.0) % MCV (78.0-93.0) fL MCH (26.0-32.0) pg MCHC (32.0-36.0) g/dL RDW Coeff of Deandra (10.0-15.0) % Plt Count (130-400) x10^3/uL Neut % (Auto) (50.0-80.0) % Lymph % (Auto) (25.0-50.0) % [place] % (Auto) (2.0-11.0) % Eos % (Auto) (0.0-4.0) % Baso % (Auto) (0.2-1.2) % PT 31.6 H (9.9-12.5) SEC INR 2.9 (2.0-3.5) Sodium (136-145) mmol/L Potassium (3.5-5.1) mmol/L Chloride (98-107) mmol/L Carbon Dioxide (21-32) mmol/L Anion Gap (5-15) mmol/L BUN (7-18) mg/dL Creatinine (0.70-1.30) mg/dL Est Cr Clr Drug Dosing Estimated GFR (MDRD) Glucose (74-106) mg/dL Calcium (8.5-10.1) mg/dL Corrected Calcium (8.5-10.1) mg/dL Total Bilirubin (0.2-1.0) mg/dL AST (15-37) U/L ALT (16-63) U/L Alkaline Phosphatase (46-116) U/L Total Protein (6.4-8.2) g/dL Albumin (3.4-5.0) g/dL Globulin Albumin/Globulin Ratio Urine Color (YELLOW) Urine Appearance (CLEAR) Urine pH (5.0-8.0) Ur Specific [place] Urine Protein (NEGATIVE) mg/dL Urine Glucose (UA) (NEGATIVE) mg/dL Urine Ketones (NEGATIVE) mg/dL Urine Occult Blood (NEGATIVE) Urine Nitrite (NEGATIVE) Urine Bilirubin (NEGATIVE) Urine Urobilinogen (0.2) EU/dL Ur Leukocyte Esterase (NEGATIVE) Urine RBC (NOT SEEN) /HPF Urine WBC (NOT SEEN) /HPF Ur Squamous Epith Cells (NEGATIVE) /HPF Urine Bacteria (NEGATIVE) /HPF Urine Mucus (NEGATIVE) /LPF Meds: Medications Generic Name Dose Route Start Last Admin Trade Name Freq PRN Reason Stop Dose Admin Sodium Chloride 1,000 mls @ 1,000 mls/hr 12/18/20 11:15 12/18/20 11:20 Normal Saline IV 1,000 mls/hr ASDIRECTED ISAK Administration Sodium Chloride 10 ml 12/18/20 11:06 Saline Flush FLUSH ASDIRECTED PRN Keep Vein Open Departure - Departure Time of Disposition: 12:25 Disposition: Home, Self-Care 01 Clinical Impression: Dehydration - Discharge Information Referrals: PCP,None [Primary Care Provider] - Forms: ED Department Discharge Additional Instructions: Home to rest. Make sure you are drinking plenty of fluids. Follow-up with your PCP later this week. Return to ER if you have any chest pain, shortness of breath, or other worrisome signs/symptoms. Sepsis Event Note (ED) - Focused Exam Vital Signs: Vital Signs Temp Pulse Resp BP Pulse Ox 12/18/20 11:00 35.7 C L 89 16 133/79 97 - Problem List Review Problem List Initiated/Reviewed/Updated: Yes - My Orders Last 24 Hours: My Active Orders 12/18/20 11:06 Sodium Chloride 0.9% [Saline Flush] 10 ml FLUSH ASDIRECTED PRN 12/18/20 11:07 Peripheral IV Insertion Adult [OM.PC] Routine 12/18/20 11:15 Sodium Chloride 0.9% [Normal Saline] 1,000 ml IV ASDIRECTED - Assessment/Plan Last 24 Hours: My Active Orders 12/18/20 11:06 Sodium Chloride 0.9% [Saline Flush] 10 ml FLUSH ASDIRECTED PRN 12/18/20 11:07 Peripheral IV Insertion Adult [OM.PC] Routine 12/18/20 11:15 Sodium Chloride 0.9% [Normal Saline] 1,000 ml IV ASDIRECTED Plan: Home to rest. Make sure you are drinking plenty of fluids. Follow-up with your PCP later this week. Return to ER if you have any chest pain, shortness of breath, or other worrisome signs/symptoms.
[2020-12-18 11:46] LABS: CHLORIDE,CL 96 mmol/L (98-107); SODIUM,NA 134 mmol/L (136-145)
[2020-12-18 11:47] LABS: ANION GAP 13.8 mmol/L (5-15)
[2020-12-18 11:51] VITALS: BP 133/79; PULSE 89
== END 2020-12-18 12:45 | disposition home or self-care (01) ==
LOC: VM.ED 10:49
DX: E86.0 Dehydration (principal); K21.9 Gastro-esophageal reflux disease without esophagitis; E78.00 Pure hypercholesterolemia, unspecified; I10 Essential (primary) hypertension; Z79.01 Long term (current) use of anticoagulants; Z79.82 Long term (current) use of aspirin; Z79.899 Other long term (current) drug therapy; Z86.718 Personal history of other venous thrombosis and embolism
CPT/HCPCS: 80053; 81001; 85025; 85610; 99283; 99284; J7030

== ENCOUNTER 2022-11-30 11:15 | Inpatient (IN) | payer OTHER ==
[2022-11-30] MEDS ORDERED: CARBOXYMETHYLCELLULOSE BUCCAL PRN (15:10)
[2022-11-30] MEDS ORDERED: LYTES BUCCAL PRN (15:10)
[2022-11-30] MEDS ORDERED: Bisacodyl 10 MG Supp RECTAL PRN (15:23)
[2022-11-30] MEDS: LACTULOSE 10 GM/15 ML PO SCH (15:59)
[2022-11-30] MEDS: DEXAMETHASONE 4 MG PO SCH (16:00)
[2022-11-30] MEDS: Melatonin 3 MG Tab PO SCH (20:03)
[2022-11-30] MEDS: ZALEPLON 10 MG PO SCH (20:04)
[2022-11-30] MEDS: CARVEDILOL 6.25 MG PO SCH (20:06)
[2022-11-30] MEDS: Morphine Oral Concentrate 20 MG/ML (OWN SUPPLY) PO SCH (20:07)
[2022-12-01] MEDS: DEXAMETHASONE 4 MG PO SCH ×2 (09:09→12:45)
[2022-12-01] MEDS: CARVEDILOL 6.25 MG PO SCH ×2 (09:10→20:01)
[2022-12-01] MEDS: Pantoprazole 40 MG Tab.CR (OWN SUPPLY) PO SCH (09:11)
[2022-12-01] MEDS: Furosemide 40 MG Tab (OWN SUPPLY) PO SCH (09:11)
[2022-12-01] MEDS: LACTULOSE 10 GM/15 ML PO SCH ×2 (09:12→12:45)
[2022-12-01] MEDS: Morphine Oral Concentrate 20 MG/ML (OWN SUPPLY) PO SCH ×2 (09:14→20:04)
[2022-12-01] MEDS: Melatonin 3 MG Tab PO SCH (20:01)
[2022-12-01] MEDS: ZALEPLON 10 MG PO SCH (20:03)
[2022-12-02] MEDS: DEXAMETHASONE 4 MG PO SCH ×2 (08:31→12:24)
[2022-12-02] MEDS: Furosemide 40 MG Tab (OWN SUPPLY) PO SCH (08:32)
[2022-12-02] MEDS: CARVEDILOL 6.25 MG PO SCH ×2 (08:33→20:08)
[2022-12-02] MEDS: Pantoprazole 40 MG Tab.CR (OWN SUPPLY) PO SCH (08:33)
[2022-12-02] MEDS: Morphine Oral Concentrate 20 MG/ML (OWN SUPPLY) PO SCH ×2 (08:34→20:07)
[2022-12-02] MEDS: LACTULOSE 10 GM/15 ML PO SCH ×2 (08:37→12:24)
[2022-12-02] MEDS: Morphine Oral Concentrate 20 MG/ML (OWN SUPPLY) PO PRN ×2 (12:27→16:09)
[2022-12-02] MEDS: ZALEPLON 10 MG PO SCH (20:06)
[2022-12-02] MEDS: Melatonin 3 MG Tab PO SCH (20:07)
[2022-12-03] MEDS: Furosemide 40 MG Tab (OWN SUPPLY) PO SCH (09:06)
[2022-12-03] MEDS: LACTULOSE 10 GM/15 ML PO SCH ×2 (09:06→12:28)
[2022-12-03] MEDS: DEXAMETHASONE 4 MG PO SCH ×2 (09:06→12:28)
[2022-12-03] MEDS: Pantoprazole 40 MG Tab.CR (OWN SUPPLY) PO SCH (09:06)
[2022-12-03] MEDS: Morphine Oral Concentrate 20 MG/ML (OWN SUPPLY) PO SCH ×2 (09:07→20:17)
[2022-12-03] MEDS: CARVEDILOL 6.25 MG PO SCH ×2 (09:12→20:17)
[2022-12-03] MEDS: Morphine Oral Concentrate 20 MG/ML (OWN SUPPLY) PO PRN ×2 (12:20→18:13)
[2022-12-03] MEDS: Melatonin 3 MG Tab PO SCH (20:16)
[2022-12-03] MEDS: ZALEPLON 10 MG PO SCH (20:18)
[2022-12-03 20:19] VITALS: BP 119/62; PULSE 80
[2022-12-04] MEDS: CARVEDILOL 6.25 MG PO SCH (10:27)
[2022-12-04] MEDS: Pantoprazole 40 MG Tab.CR (OWN SUPPLY) PO SCH (10:27)
[2022-12-04] MEDS: DEXAMETHASONE 4 MG PO SCH (10:27)
[2022-12-04] MEDS: Furosemide 40 MG Tab (OWN SUPPLY) PO SCH (10:27)
[2022-12-04] MEDS: LACTULOSE 10 GM/15 ML PO SCH (10:28)
[2022-12-04] MEDS: Morphine Oral Concentrate 20 MG/ML (OWN SUPPLY) PO SCH (10:29)
== END 2022-12-04 13:15 | disposition hospice, home (50) | DRG 951 ==
LOC: VM.MS 11:15
PROVIDERS: ADMIT Nurse Practitioner Family; ATTEND Nurse Practitioner Family
DX: Z51.5 Encounter for palliative care (principal); C22.0 Liver cell carcinoma; I25.10 Atherosclerotic heart disease of native coronary artery without angina pectoris; Z75.5 Holiday relief care; K21.9 Gastro-esophageal reflux disease without esophagitis; E66.9 Obesity, unspecified; E78.5 Hyperlipidemia, unspecified; R53.1 Weakness; Z68.26 Body mass index [BMI] 26.0-26.9, adult; Z79.899 Other long term (current) drug therapy; Z86.718 Personal history of other venous thrombosis and embolism; Z79.01 Long term (current) use of anticoagulants; Z86.73 Personal history of transient ischemic attack (TIA), and cerebral infarction without residual deficits
CPT/HCPCS: A9270-GY; J8540